=== PATIENT | male | born 1980 ===

== ENCOUNTER 2023-10-25 21:19 | Emergency (ER) | payer SELFPAY ==
[~2023-10-25] VITALS: Ht 186.7 cm; Wt 135.9 kg
[2023-10-25 21:19] VITALS: BP 135/70; TEMP 98.6; O2SAT 99
== END 2023-10-26 00:03 | disposition left against medical advice (07) ==
LOC: M ED 21:19
DX: Z53.21 Procedure and treatment not carried out due to patient leaving prior to being seen by health care provider (principal)